=== PATIENT | male | born 1955 | race Caucasian/White ===

== ENCOUNTER 2019-12-05 09:22 | Outpatient (CLI) | payer MEDICARE, SELFPAY ==
--- NOTE | ~2019-12-05 | CT_ITS ---
EXAMINATION: CT chest w con DATE: 12/05/2019 10:05 INDICATION: Solitary pulmonary nodule TECHNIQUE: Transaxial computed tomographic images of the chest were obtained after the administration of 75 cc of Omnipaque 350 intravenous contrast. The dose-length product (DLP) was 688.47 mGy-cm. Ite rative reconstruction was used. COMPARISON: 05/31/2018 FINDINGS: No suspicious pulmonary nodule is identified. There are stable pulmonary nodules measuring up to 5 mm. There is mild dependent atelectasis. The lungs are free of focal airspace opacities. Ther e is no pleural effusion or pneumothorax. No pathologically enlarged thoracic lymph nodes are identif ied. The heart size is normal. There is moderate thoracic spondylosis. There are partially imaged silvio nges of anterior fusion in the lower cervical spine. IMPRESSION: 1. Stable lung nodules most consistent with old granulomatous disease. No suspicious pulmonary nodule identified. Reviewed, dictated and finalized at location A. IMPRESSION: 1. Stable lung nodules most consistent with old granulomatous disease. No suspi cious pulmonary nodule identified.
[2019-12-05 09:56] LABS: Estimated Glomerular Filt Rate > 60
== END 2019-12-05 09:23 | disposition home or self-care (01) ==
PROVIDERS: PCP Family Medicine; Visit Provider Family Medicine
DX: R91.8 Other nonspecific abnormal finding of lung field (principal)
CPT/HCPCS: 36415; 71260; Q9967

== ENCOUNTER 2020-06-24 14:51 | Outpatient (CLI) | payer MEDICARE, SELFPAY ==
--- NOTE | ~2020-06-24 | US_ITS ---
EXAMINATION: US venous doppler LE EXAM DATE: 06/24/2020 16:10 INDICATION: Personal history of DVT. TECHNIQUE: Multiple grayscale, color flow and Doppler images of the lower extremity deep venous syste ms bilaterally were obtained and reviewed. Comparison is made to prior examination from 12/09/2017. FINDINGS: Right side: The right common femoral, femoral and profunda veins demonstrate normal color flow, respi ratory variation, augmentation and compressibility. Compressibility, color flow confirmed within the right popliteal, posterior tibial, and greater saphenous veins. Peroneal vein not visualized. Left side: The left common femoral, femoral and profunda veins demonstrate normal color flow, respira tory variation, augmentation and compressibility. Compressibility, color flow confirmed within the l eft popliteal, posterior tibial, and greater saphenous veins. Peroneal vein not visualized. IMPRESSION: 1. No evidence of lower extremity deep venous thrombosis bilaterally. Reviewed, dictated and finalized at location B.
== END 2020-06-24 14:52 | disposition home or self-care (01) ==
PROVIDERS: PCP Family Medicine; Visit Provider Nurse Practitioner Adult Health
DX: D68.69 Other thrombophilia (principal); Z86.718 Personal history of other venous thrombosis and embolism
CPT/HCPCS: 93970

== ENCOUNTER 2022-04-16 16:02 | Outpatient (CLI) | payer MEDICARE, SELFPAY ==
--- NOTE | ~2022-04-16 | US_ITS ---
EXAMINATION: US venous doppler LE RT DATE: 04/16/2022 16:41 INDICATION: Localized right lower limb swelling TECHNIQUE: Grayscale ultrasound images without and with compression and Doppler ultrasound images of the right lower extremity veins were obtained. COMPARISON: 06/24/2020 FINDINGS: Age-indeterminate noncompressible occlusive appearing thrombus in the right posterior tibial and maya fatmata veins which is new since the prior study. The visualized portions of right common femoral vein, profunda (deep) femoral vein, femoral vein, popliteal vein, gastrocnemius vein and greater saphenous vein outflow are patent. IMPRESSION: 1. [id number] deep venous thrombosis in the right peroneal and posterior tibial veins. Dr. Tiffanie kirk discussed these findings with Dr. Huggins at 4:45 PM. Reviewed, dictated and finalized at location A. IMPRESSION: 1. [id number] deep venous thrombosis in the right peroneal and posterior t ibial veins. Dr. Medrano discussed these findings with Dr. Huggins at 4:45 PM.
== END 2022-04-16 16:03 | disposition home or self-care (01) ==
PROVIDERS: PCP Family Medicine; Visit Provider Internal Medicine Cardiovascular Disease
DX: R60.0 Localized edema (principal); I82.451 Acute embolism and thrombosis of right peroneal vein; I82.441 Acute embolism and thrombosis of right tibial vein
CPT/HCPCS: 93971

== ENCOUNTER 2022-04-24 07:40 | Outpatient (CLI) | payer MEDICARE, SELFPAY ==
--- NOTE | 2022-04-24 07:57 | ECHO_ITS ---
Patient Info Name: Issa Ybarra Age: 67 years : 1955 Gender: Male Ht: 72 in Wt: 250 lbs BSA: 2.44 m2 HR: 76 bpm BP: 118 / 81 mmHg Technical Quality: Fair Exam Date: 04/24/2022 8:17 AM Exam Location: [facility] Patient Status: Outpatient Admit Date: 04/24/2022 Staff Ordering Physician: Michel Huggins DO Shipping Weigher: Tori Astudillo RDCS Attending Provider: Michel Huggins DO Referring Physician: Joseluis CROOKS; Exam Type: CA echo doppler color flow Study Info Indications R60.0 - Localized edema Complete two-dimensional, color flow and Doppler transthoracic echocardiogram is performed. Summary 1. Complete two-dimensional, color flow and Doppler transthoracic echocardiogram is performed. 2. Left ventricular chamber dimension is moderately enlarged. 3. Left ventricular septal wall motion is abnormal with septal motion related to bundle branch block. 4. Left ventricular systolic function is preserved, estimated at 50-55%. 5. The left ventricular diastolic function is grade I diastolic dysfunction. 6. E/e' 15 is elevated. 7. Global longitudinal strain is abnormal at -14.8%. 8. There is mild aortic valve sclerosis. 9. No pulmonary hypertension, estimated pulmonary arterial systolic pressure is 27 mmHg. Left Ventricle E/e' 15 is elevated. Global longitudinal strain is abnormal at -14.8%. Left ventricular systolic function is preserved, estimated at 50-55%. Left ventricular chamber dimension is moderately enlarged. Left ventricular septal wall motion is abnormal with septal motion related to bundle branch block. The left ventricular diastolic function is grade I diastolic dysfunction. Right Ventricle Right ventricular systolic function is normal and with normal TAPSE 2.5 cm. Right ventricular chamber dimension is normal. Left Atria Left atrial chamber dimension is normal. Right Atria Right atrial chamber dimension is normal. Aortic Valve The aortic valve is trileaflet. There is mild aortic valve sclerosis. There is no aortic valve stenosis. There is no aortic valve regurgitation. Pulmonic Valve There is no pulmonic regurgitation. Mitral Valve There is no mitral valve stenosis. There is no mitral valve regurgitation. Tricuspid Valve There is no tricuspid valve regurgitation. No pulmonary hypertension, estimated pulmonary arterial systolic pressure is 27 mmHg. Pericardium/Pleural There is no pericardial effusion. Inferior Vena Cava Normal inferior vena cava with >50% collapse upon inspiration consistent with normal right atrial pressure, 5 mmHg. Aorta The aortic root size at the sinus of Valsalva is normal. Left Ventricular Outflow Tract Name Value Normal LVOT 2D LVOT Diameter 2.0 cm LVOT Doppler LVOT Peak Gradient 4 mmHg LVOT Mean Gradient 2 mmHg LVOT VTI 21 cm LVOT VTI/AV VTI Ratio 0.8 LVOT Stroke Volume 66 ml LVOT CO 4.4 l/min LVOT CI 1.8 l/min/
== END 2022-04-24 07:41 | disposition home or self-care (01) ==
LOC: ANHCARD 07:42
PROVIDERS: PCP Family Medicine; Visit Provider Internal Medicine Cardiovascular Disease
DX: R60.0 Localized edema (principal); I35.8 Other nonrheumatic aortic valve disorders; I51.7 Cardiomegaly
CPT/HCPCS: 93306

== ENCOUNTER → 2022-05-20 10:53 | Outpatient (CLI) | payer MEDICARE, SELFPAY ==
--- NOTE | ~2022-05-20 | XR_ITS ---
EXAMINATION:XR cervical spine min 6V DATE: 05/20/2022 11:16 INDICATION: Neck pain TECHNIQUE: AP, lateral, lateral swimmers, bilateral oblique and odontoid views of the cervical spine are provided. COMPARISON: 06/30/2013 FINDINGS: There are changes of anterior fusion and interbody device placement from C4 through C7. The odontoid is intact. No fracture is identified. Bone alignment is normal. The vertebral body heights are maintained. There is severe loss of intervertebral disc space height at C3-4 and C4-5 with worsen ing since the comparison examination. There is severe multilevel facet and uncovertebral joint osteoa rthritis. There is moderate to severe neuroforaminal stenosis at multiple levels in the cervical spin e. Prevertebral soft tissues are normal. IMPRESSION: 1. Severe cervical spondylosis with interval worsening since the comparison examination. Reviewed, dictated and finalized at location A. IMPRESSION: 1. Severe cervical spondylosis with interval worsening since the comparison exa mination.
== END ==
PROVIDERS: PCP Family Medicine; Visit Provider Nurse Practitioner Family
DX: M54.2 Cervicalgia (principal); M47.812 Spondylosis without myelopathy or radiculopathy, cervical region
CPT/HCPCS: 72052

== ENCOUNTER 2022-06-12 11:41 | Outpatient (CLI) | payer MEDICARE, SELFPAY ==
[2022-06-12 13:52] LABS: Iron 29 ug/dL (49-181)
[2022-06-12 14:08] LABS: Percent Iron Saturation 7 % (20-50)
[2022-06-12 14:28] LABS: Ferritin 7.16 ng/mL (11.1-264)
[2022-06-12 14:45] LABS: Vitamin B12 > 1000.0 pg/mL (239-931)
== END 2022-06-12 11:42 | disposition home or self-care (01) ==
LOC: ANHLAB 11:42
PROVIDERS: PCP Family Medicine; Visit Provider Internal Medicine Hematology & Oncology
DX: D64.9 Anemia, unspecified (principal)
CPT/HCPCS: 36415; 82607; 82728; 83540; 83550

== ENCOUNTER → 2022-06-15 13:50 | Outpatient (CLI) | payer MEDICARE, SELFPAY ==
--- NOTE | ~2022-06-15 | US_ITS ---
EXAMINATION: US venous doppler LE RT DATE: 06/15/2022 14:21 INDICATION: Recent deep venous thrombosis, currently on blood thinners. TECHNIQUE: Grayscale ultrasound images without and with compression and Doppler ultrasound images of the right lower extremity veins were obtained. COMPARISON: 04/16/2022 FINDINGS: The veins in the right calf are suboptimally visualized due to prominent subcutaneous edema at the ca lf. Vascular flow is identified within both of the paired posterior tibial and peroneal veins however these do not appear to completely compress suggesting small amount of residual chronic nonocclusive thrombus. The visualized portions of right common femoral vein, profunda (deep) femoral vein, femoral vein, popliteal vein, peroneal trunk, gastrocnemius vein and greater saphenous vein outflow are camacho nt. IMPRESSION: 1. Likely small amount of residual now nonocclusive deep venous thrombosis in the paired right poste rior tibial and peroneal veins at the calf. Assessment is somewhat limited due to edema at the calf. Reviewed, dictated and finalized at location A. IMPRESSION: 1. Likely small amount of residual now nonocclusive deep venous thrombosis in the paired right posterior tibial and peroneal veins at the calf. Assessment is somewhat limited due to edema at the calf.
== END ==
PROVIDERS: PCP Internal Medicine Hematology & Oncology; Visit Provider Internal Medicine Hematology & Oncology
DX: Z86.718 Personal history of other venous thrombosis and embolism (principal); M79.89 Other specified soft tissue disorders
CPT/HCPCS: 93971

== ENCOUNTER 2022-08-10 00:02 | Day surgery (SDC) | payer MEDICARE, SELFPAY ==
--- NOTE | 2022-07-31 14:25 | PM.HPGS ---
History of Present Illness History of Present Illness Consent: Risks, benefits, and alternatives have been discussed and questions answered. Patient agrees to proceed with procedure. Chief complaint: CHLOE Narrative: Issa Ybarra is a 67 year old male With iron deficiency anemia. His hemoglobin recently was 10.6. MCV is low at 75. Iron saturation is only 7%. He had a colonoscopy with polypectomy about 3 years ago. Review of Systems Review of Systems: All systems reviewed & are unremarkable except as noted in HPI and below PMFSH Past Medical History Medical History Abnormal laboratory test BMI 33.0-33.9,adult Hypersomnia Lung nodule, solitary Family History Family History Father Family history of malignant neoplasm Family history of lung cancer, Onset Age: 67 Mother Family history of diabetes mellitus in first degree relative Family history of heart disease in male family member before age 55 Sibling No problems noted. Social History Social History Smoking packs per day: 5 Smoking cigarettes per day: 100.0 Years smoked: 10 Smoking pack-years: 50.00 Smoking status: Former smoker Tobacco type: cigarettes Second hand tobacco smoke exposure: No Alcohol intake: former Substance use: never Substance use type: does not use Living arrangements: with family Additional occupation/education comments: steel rod buster Gender identity (if verbalized by the patient): Male Spiritual care concerns: No Meds Home Medications and Allergies Home Medications Medication Instructions Recorded Confirmed Type lancets 28 gauge (OneTouch #100 ea 11/17/19 05/14/22 Rx [employer] Lancing [employer]) mecobalamin (vitamin B12) 1,000 1,000 mcg PO DAILY 09/24/20 08/10/22 History mcg chewable tablet cholecalciferol (vitamin D3) 50 50 mcg PO DAILY 04/16/22 08/10/22 History mcg (2,000 unit) capsule metformin 500 mg tablet 500 mg PO DIRECTED 04/16/22 08/10/22 History rivaroxaban 20 mg tablet (Xarelto) 20 mg PO DAILY #90 tabs 05/20/22 08/10/22 Rx blood sugar diagnostic (OneTouch See Rx Instructions .Route 07/16/22 Rx Verio test strips) .COMPLEX #100 strips cyclobenzaprine 10 mg tablet 10 mg PO TID PRN Spasms 08/03/22 08/10/22 History ferrous sulfate 325 mg (65 mg 325 mg PO BID 08/03/22 08/10/22 History iron) tablet lisinopril 20 mg tablet 20 mg PO DAILY 08/03/22 08/10/22 History omeprazole 40 mg capsule,delayed 40 mg PO DAILY 08/03/22 08/10/22 History release pravastatin 10 mg tablet 10 mg PO DAILY 08/03/22 08/10/22 History carvedilol 25 mg tablet 25 mg PO BID 08/10/22 08/10/22 History Allergies Allergy/AdvReac Type Severity Reaction Status Date / Time No Known Allergies Allergy Verified 08/10/22 09:26 Exam Const: General: alert Orientation/consciousness: patient oriented x3 Resp: Auscultation: clear to auscultation bilaterally Cardio: Rhythm: regular rhythm GI: GI Palp: Yes Soft to palpation and No Tenderness to palpation present (GI) Neuro: General: patient oriented x3 Assessment and Plan Assessment and plan (1) Iron deficiency anemia: Code(s): D50.9 - Iron deficiency anemia, unspecified Status: Acute Assessment and Plan: EGD with possible biopsy or dilatation or cautery.Colonoscopy with possible biopsy or polypectomy or cautery or injection of substances.
[2022-08-03 12:38] VITALS: BMI 32.5
[2022-08-10 09:27] LABS: Glucose Point of Care 110 mg/dl (65-105)
[2022-08-10 09:28] VITALS: BP 149/84; PULSE 81; RESP 20; TEMP 36.2; O2SAT 100
[2022-08-10] MEDS: LACTATED RINGERS 1,000 ML 150 ML IV CONT (09:31)
--- NOTE | 2022-08-10 10:27 | WPDANESEPPF ---
Anes - Initial Pre Proc Eval Procedure: Operation Date: 08/10/22 10:45 Proposed Procedures p Esophagogastroduodenoscopy & Colonoscopy - Issa Kothari MD Date/Time: 08/10/22 10:27 Surgeon: Issa Kothari MD Pre Op Diagnosis: CHLOE Patient Data Age: 67 Gender: M Height: 1.83 m Weight: 97.2 kg Last Vital Signs Temp 97.2 F L 08/10/22 09:28 Pulse 81 08/10/22 09:28 Resp 20 08/10/22 09:28 BP 149/84 H 08/10/22 09:28 Pulse Ox 100 08/10/22 09:28 O2 Del Method Room Air 08/10/22 09:28 Allergies Allergy/AdvReac Type Severity Reaction Status Date / Time No Known Allergies Allergy Verified 08/10/22 09:26 Home Medications Medication Instructions Recorded Confirmed Type lancets 28 gauge (OneTouch #100 ea 11/17/19 05/14/22 Rx [employer] Lancing Devices) mecobalamin (vitamin B12) 1,000 1,000 mcg PO DAILY 09/24/20 08/10/22 History mcg chewable tablet cholecalciferol (vitamin D3) 50 50 mcg PO DAILY 04/16/22 08/10/22 History mcg (2,000 unit) capsule metformin 500 mg tablet 500 mg PO DIRECTED 04/16/22 08/10/22 History rivaroxaban 20 mg tablet (Xarelto) 20 mg PO DAILY #90 tabs 05/20/22 08/10/22 Rx blood sugar diagnostic (OneTouch See Rx Instructions .Route 07/16/22 Rx Verio test strips) .COMPLEX #100 strips cyclobenzaprine 10 mg tablet 10 mg PO TID PRN Spasms 08/03/22 08/10/22 History ferrous sulfate 325 mg (65 mg 325 mg PO BID 08/03/22 08/10/22 History iron) tablet lisinopril 20 mg tablet 20 mg PO DAILY 08/03/22 08/10/22 History omeprazole 40 mg capsule,delayed 40 mg PO DAILY 08/03/22 08/10/22 History release pravastatin 10 mg tablet 10 mg PO DAILY 08/03/22 08/10/22 History carvedilol 25 mg tablet 25 mg PO BID 08/10/22 08/10/22 History Laboratory Tests 08/10/22 09:23 POC Capillary Glucose 110 mg/dl H mg/dl (65-105) Patient hx anesthesia problems: none Family hx anesthesia problems: none Results Review: All pre-operative results and documents have been reviewed as part of the pre-operative evaluation. [facility] Past Medical History Medical History Abnormal laboratory test BMI 33.0-33.9,adult Hypersomnia Lung nodule, solitary Family History Family History Father Family history of malignant neoplasm Family history of lung cancer, Onset Age: 67 Mother Family history of diabetes mellitus in first degree relative Family history of heart disease in male family member before age 55 Sibling No problems noted. Social History Social History Smoking packs per day: 5 Smoking cigarettes per day: 100.0 Years smoked: 10 Smoking pack-years: 50.00 Smoking status: Former smoker Tobacco type: cigarettes Second hand tobacco smoke exposure: No Alcohol intake: former Substance use: never Substance use type: does not use Living arrangements: with family Additional occupation/education comments: fitness worker Gender identity (if verbalized by the patient): Male Spiritual care concerns: No Anes - Eval Final PreProcedure Day of Procedure 08/10/22 10:27 Patient weight: normal Heart: regular rate and rhythm Lungs: clear to auscultation Airway: Mallampati scale class II Neurological: alert and oriented Last oral intake: >/= 8 hours ASA classification: III Emergent: no Anesthetic plan: proceed Anesthesia type and monitoring: general GIVS and standard monitoring Results Review: All pre-operative results and documents have been reviewed as part of the pre-operative evaluation. Informed Consent: The patient's anesthetic plan and its attendant risks and benefits were discussed with the patient/family/POA. Questions were solicited and answers provided to the satisfaction of the patient/family/POA.
--- NOTE | 2022-08-10 11:26 | SUR.OPER ---
EGD started at 1057 and ended at 1103. Colonoscopy started at 1109 and ended at 1126.
[2022-08-10 11:29] VITALS: BP 126/73; PULSE 79; RESP 17; O2SAT 93
[2022-08-10 11:39] VITALS: BP 138/75; PULSE 79; RESP 19; O2SAT 100
[2022-08-10 11:49] VITALS: BP 151/78; PULSE 67; RESP 22; O2SAT 100
== END 2022-08-10 12:27 | disposition home or self-care (01) ==
PROVIDERS: PCP Family Medicine; Visit Provider Internal Medicine Gastroenterology
PROC: 0DJ08ZZ Inspection of Upper Intestinal Tract, Via Natural or Artificial Opening Endoscopic (ICD-10-PCS; CPT 43235; principal; 2022-08-10 10:45)
DX: D50.9 Iron deficiency anemia, unspecified (principal); K64.8 Other hemorrhoids; D12.4 Benign neoplasm of descending colon; K57.30 Diverticulosis of large intestine without perforation or abscess without bleeding; D13.2 Benign neoplasm of duodenum; K21.9 Gastro-esophageal reflux disease without esophagitis; Z79.84 Long term (current) use of oral hypoglycemic drugs; Z79.01 Long term (current) use of anticoagulants; Z87.891 Personal history of nicotine dependence
CPT/HCPCS: 45385; 43239; 82948; 88305; J2704; J7120

== ENCOUNTER 2022-08-24 09:12 | Outpatient (CLI) | payer MEDICARE, SELFPAY ==
--- NOTE | ~2022-08-24 | US_ITS ---
EXAMINATION:US venous doppler LE RT INDICATION:History of chronic DVT. Patient on blood thinners. TECHNIQUE: Multiple grayscale, color flow and Doppler images of the right lower extremity deep venous systems were obtained and reviewed. COMPARISON:06/15/2022 FINDINGS: The common femoral, superficial femoral and popliteal veins demonstrate normal respiratory variation, augmentation and compressibility. Color flow is also seen within the greater saphenous an d profunda veins. There is deep venous partially occlusive thrombosis of the right posterior tibial a nd peroneal veins. IMPRESSION: 1: Partially occlusive deep venous thrombosis in the right posterior tibial and peroneal veins. Reviewed, dictated and finalized at location A. COORDINATOR
== END 2022-08-24 09:13 | disposition home or self-care (01) ==
PROVIDERS: PCP Family Medicine; Visit Provider Internal Medicine Hematology & Oncology
DX: I82.441 Acute embolism and thrombosis of right tibial vein (principal); I82.451 Acute embolism and thrombosis of right peroneal vein
CPT/HCPCS: 93971

== ENCOUNTER 2022-11-30 12:51 | Outpatient (CLI) | payer MEDICARE, SELFPAY ==
--- NOTE | ~2022-11-30 | US_ITS ---
EXAMINATION: US venous doppler LE RT DATE: 11/30/2022 15:10 INDICATION: Lower limb swelling TECHNIQUE: Grayscale ultrasound images without and with compression and Doppler ultrasound images of the right lower extremity veins were obtained. COMPARISON: 08/24/2022 FINDINGS: The visualized portions of right common femoral vein, profunda (deep) femoral vein, femoral vein, pop liteal vein, peroneal trunk, posterior tibial veins, peroneal veins, gastrocnemius vein and greater s aphenous vein outflow are patent. Subcutaneous edema at the right calf and more prominently about the ankle. IMPRESSION: 1. No deep venous thrombosis in the right lower limb. Reviewed, dictated and finalized at location B.
== END 2022-11-30 12:52 | disposition home or self-care (01) ==
PROVIDERS: PCP Family Medicine; Visit Provider Internal Medicine Hematology & Oncology
DX: Z86.718 Personal history of other venous thrombosis and embolism (principal)
CPT/HCPCS: 93971

== ENCOUNTER → 2023-03-29 09:02 | Outpatient (CLI) | payer MEDICARE, SELFPAY ==
--- NOTE | ~2023-03-29 | CT_ITS ---
CT of the Abdomen: Indication: Duodenal polyp Technique: 2.5 mm axial scans were obtained through the abdomen prior to and following intravenous a dministration of 100 cc of Omnipaque 350. Dose reduction technique was used on this scan by utilizing automated exposure control and iterative reconstruction technique. The dose-length product (DLP) was 2325.93 mGy-cm. Findings: Scans through the lung bases demonstrate calcified basilar granulomas. The liver, spleen, pancreas, gallbladder, adrenals and kidneys are within normal limits. There are at herosclerotic calcifications of the aorta. No lymphadenopathy. Probable metallic biopsy clip in the descending duodenum. No distinct soft tissue mass or polyp evide nt on this exam. No bowel obstruction. No free air or abscess. No ascites. Impression: Metallic biopsy/surgical clip in the descending duodenum. No evidence of soft tissue mass/polyp on th is exam. Reviewed, dictated and finalized at [facility]. Impression: Metallic biopsy/surgical clip in the descending duodenum. No evidence of soft t issue mass/polyp on this exam.
[2023-03-29 09:31] LABS: Estimated Glomerular Filt Rate 60
== END ==
PROVIDERS: PCP Family Medicine; Visit Provider Internal Medicine Gastroenterology
DX: K31.7 Polyp of stomach and duodenum (principal)
CPT/HCPCS: 74170; Q9967